=== PATIENT | male | born 1975 | race Caucasian/White ===

== ENCOUNTER 2017-03-08 16:20 | Emergency (ER) | payer OTHER ==
[~2017-03-08] VITALS: Ht 172.7 cm; Wt 74.4 kg
[2017-03-08 16:29] VITALS: Ht 172.7 cm; Wt 74.4 kg
[2017-03-08 18:46] VITALS: BP 139/80
== END 2017-03-08 18:46 | disposition home or self-care (01) ==
LOC: ED 16:20
DX: A64 Unspecified sexually transmitted disease (principal); F17.200 Nicotine dependence, unspecified, uncomplicated; R03.0 Elevated blood-pressure reading, without diagnosis of hypertension
CPT/HCPCS: 87491; 87591; J0696

== ENCOUNTER 2017-08-13 15:47 | Emergency (ER) | payer OTHER ==
[~2017-08-13] VITALS: Ht 172.7 cm; Wt 79.9 kg
[2017-08-13 15:57] VITALS: BP 120/83; Ht 172.7 cm; Wt 79.9 kg
== END 2017-08-13 18:50 | disposition home or self-care (01) ==
LOC: ED 15:47
DX: H66.91 Otitis media, unspecified, right ear (principal)

== ENCOUNTER 2018-08-24 05:35 | Emergency (ER) | payer MEDICAID ==
[~2018-08-24] VITALS: Ht 167.6 cm; Wt 78.5 kg
[2018-08-24 05:41] VITALS: Ht 167.6 cm; Wt 78.5 kg
[2018-08-24 06:15] LABS: BASOPHIL % 0.1 % (0-2); PLATELET COUNT 178 x10^3mcL (130-400); RED CELL DISTRIBUTION WIDTH 12.8 % (11.5-14.5)
[2018-08-24 06:23] LABS: CALCIUM 8.9 mg/dL (8.5-10.1); CARBON DIOXIDE 24.1 mmol/L (21-32); CHLORIDE SERUM 103 mmol/L (98-107); CREATININE SERUM 1.3 mg/dL (0.7-1.3); GFR1 > 60 mL/min; GLUCOSE SERUM 113 mg/dL (74-106); POTASSIUM SERUM 3.8 mmol/L (3.5-5.1); SODIUM SERUM 138 mmol/L (136-145)
[2018-08-24 06:27] LABS: ALBUMIN 3.6 g/dL (3.4-5.0); ALKALINE PHOSPHATASE 87 U/L (46-116); ALT/SGPT 31 U/L (16-63); AMYLASE 38 U/L (25-115); AST/SGOT 20 U/L (15-37); BILIRUBIN TOTAL 0.57 mg/dL (0.20-1.00); LIPASE 96 IU/L (73-393)
[2018-08-24 07:55] VITALS: BP 120/78
== END 2018-08-24 07:55 | disposition home or self-care (01) ==
LOC: ED 05:35
PROVIDERS: Specialist
DX: K52.9 Noninfective gastroenteritis and colitis, unspecified (principal)
CPT/HCPCS: G0480; J1885; J2405; J7030